=== PATIENT | female | born 1960 | race Caucasian/White ===

== ENCOUNTER 2018-07-08 21:13 | Emergency (ER) | payer BC ==
[2018-07-08 21:26] VITALS: BP 136/75
[2018-07-08] MEDS ORDERED: CEPHALEXIN 500 MG CAP PO ONE (22:00)
--- NOTE | 2018-07-08 22:00 | EDPHY ---
General Time Seen by Provider: 07/08/18 21:28 Narrative: CLINICAL IMPRESSION: Urinary tract infection, left flank pain, skin paresthesias ASSESSMENT/PLAN: 57-year-old female visiting from [place] presents to the emergency department requesting antibiotics for urinary tract infection diagnosed at an emergency department in [place]. Patient had culture positive Klebsiella acute cystitis diagnosed by [place] ED on the 2nd of this month. I was able to visualize these cultures and she has multi-drug sensitivity. At the time she was seen she also was diagnosed with shingles of the left flank although I do not appreciate fascicular lesions. She does report paresthesias any to light touch on the skin surface. Clinically she does not appear ill, toxic or septic, she has not been nauseous or vomiting, no reported fevers or chills, low clinical suspicion for pyelonephritis. She was prescribed Keflex, given initial dose in the ED, and advised to follow up with her PCP upon returning home to [place] tomorrow. Warning signs return to ED sooner outlined and discharge. DIFFERENTIAL DX: Differential includes but not limited to acute cystitis, neurogenic bladder, pyelonephritis, shingles ED PROCEDURES: See lab and/or imaging results below Reviewed patient's ED summary from [place] ER which was faxed to our ER. This does show urine culture positive for Klebsiella with multi-drug sensitivity. Labs at that time were reassuring, no leukocytosis renal insufficiency or electrolyte imbalance. Urine had no hematuria or bacteriuria, positive for pyuria. ED COURSE: CHIEF COMPLAINT: Dysuria, urgency, possible shingles HPI: 57-year-old female presents to the emergency department for evaluation of UTI symptoms and shingles. Patient is visiting our area from [place]. She was seen at an emergency department on the 2nd of this month for left-sided flank pain, skin pain and burning along the left flank, and dysuria. She was clinically diagnosed with shingles and started on valacyclovir. She was also given prescriptions for gabapentin and prednisone but elected not to take these. She received a call today from the ER stating that she had positive urine cultures for Klebsiella and was told to start Keflex. She was never given a prescription for Keflex. She states she is feeling a little worse from her initial ER visit but no reported fever, chills, vomiting, nausea, appetite change, visible bloody urine, or worsening dysuria. She never developed a rash to the left flank but continues to have hyper sensation and burning to the skin. No sensation of urinary retention, saddle anesthesia, or incontinence. She is scheduled to return back to [place] tomorrow. They are here to confirm that she does in fact need Keflex, she does not wish to provide an additional urine sample, but there are no pharmacies open and she would like to start antibiotics tonight. PAST MEDICAL HISTORY: None reported See triage summary and nurse notes for addition applicable history Pertinent Past Surgical History: None reported Family History: Noncontributory Social History: Otherwise healthy, living in [place], here visiting REVIEW OF SYSTEMS: A full 10 point review of systems was negative except for those mentioned in HPI. PHYSICAL EXAM: General Appearance: Alert, oriented, appropriate, cooperative, NAD, well hydrated, non-toxic appearing, VSS, no hypoxia. Respiratory: There are no retractions, lungs are clear to auscultation. Cardiac: Regular rate and rhythm, no murmurs or gallops. Gastrointestinal: Abdomen is soft, nontender, bowel sounds normal, no masses/ hernia, no rigidity, guarding or focal peritoneal findings. No reproducible CVA tenderness. Three very small flat erythematous bumps noted to left flank. Subjective tenderness to light palpation of the skin over the left thing. No vesicles or open wounds suggestive of shingles. Skin: Warm, dry, no rashes, no nodules on palpation. MEDICAL DECISION MAKING: Patient was seen independently. Secondary supervising physician at time of evaluation was: Dr. Celaya. Diagnosis: UTI . New, requires workup Summary: See Assessment and Plan for summary of ED visit Clinical lab tests: [Reviewed records from [place] Patient Progress: Stable. - History Smoking Status: Never smoked - Objective Vital Signs: Initial Vital Signs Temperature (C) 36.5 C 07/08/18 21:17 Heart Rate 74 07/08/18 21:17 Respiratory Rate 16 07/08/18 21:17 Blood Pressure 136/75 H 07/08/18 21:17 O2 Sat (%) 97 07/08/18 21:17 O2 Delivery Mode Room Air Allergies/Adverse Reactions: No Known Allergies Allergy (Unverified 07/08/18 21:26) Home Medications: Medication Instructions Recorded Acyclovir 07/08/18 Cephalexin [Keflex (*)] 500 mg PO QID #20 cap 07/08/18 Medications Given: Discontinued Medications Cephalexin (Keflex 500 Mg Prepack#4) 1 btl TAKEHOME EDNOW ONE PRN Reason: Protocol Stop: 07/08/18 22:03 Last Admin: 07/08/18 22:05 Dose: 1 btl Cephalexin HCl (Keflex) 500 mg PO EDNOW ONE PRN Reason: Protocol Stop: 07/08/18 22:01 Last Admin: 07/08/18 22:05 Dose: 500 mg Departure - Departure Disposition: Home, Routine, Self-Care Clinical Impression: UTI (urinary tract infection), Left flank pain Condition: Good Instructions: Cephalexin (By mouth), Urinary Tract Infection in Women (ED) Additional Instructions: DISCHARGE INSTRUCTIONS FROM YOUR DOCTOR Thank you for visiting our emergency department today. Please keep in mind that discharge from the emergency department does not mean that there is nothing wrong - it simply means that we have not identified an emergency condition that requires further evaluation or treatment in the hospital. You should always plan to follow up with primary care for re-evaluation of your condition in the next 2-3 days. If you have been referred to a specialist, please call as soon as possible (today or tomorrow) to schedule your follow up appointment at the appropriate time. WE GAVE YOU KEFLEX IN THE EMERGENCY DEPARTMENT AND A PRESCRIPTION FOR KEFLEX TO FILL TOMORROW. THIS WAS BASED OFF CULTURE RESULTS THAT WERE OBTAINED IN [place] ON THE 2ND OF THIS MONTH. PLEASE FOLLOW UP WITH HER PRIMARY CARE DOCTOR WHEN HE RETURNS HOME. PLEASE DRINK PLENTY OF FLUIDS. YOU MAY CONTINUE VALACYCLOVIR AT THE SAME TIME YOUR TAKING KEFLEX. WE SEE NO EVIDENCE OF SHINGLES RASH ON TODAY'S EXAM. PLEASE GO TO AN ED SOONER FOR DEVELOPMENT OF FEVER GREATER THAN 100.4, NAUSEA, VOMITING, WORSENING ABDOMINAL OR FLANK PAIN, INABILITY TO STAY HYDRATED, WORSENING UTI SYMPTOMS, VISIBLE BLOOD IN THE URINE, OR ANY OTHER CONCERNS. People present with illnesses and injuries in different ways, and it is always possible that we have missed something. You may always return for re-evaluation if symptoms worsen or if they are not improving or if you develop new/different symptoms. Again, thank you for choosing our emergency department. We hope that you feel better. Referrals: Patient,NotPresent [Unknown] - As per Instructions Prescriptions: Cephalexin [Keflex (*)] 500 mg PO QID #20 cap
[2018-07-08] MEDS ORDERED: CEPHALEXIN 500MG PREPACK#4 BTL TAKEHOME ONE (22:02)
== END 2018-07-08 22:12 | disposition home or self-care (01) ==
DX: N39.0 Urinary tract infection, site not specified (principal); B96.1 Klebsiella pneumoniae [K. pneumoniae] as the cause of diseases classified elsewhere